=== PATIENT | male | born 1945 | race Caucasian/White ===

== ENCOUNTER 2017-10-05 21:15 | Emergency (ER) | payer MEDICARE ==
[~2017-10-05] VITALS: Ht 185.4 cm; Wt 92.0 kg
[2017-10-05 21:24] VITALS: BP 157/72; PULSE 93; RESP 18; TEMP 102.6; O2SAT 93
[2017-10-05] MEDS ORDERED: SODIUM CHLOR 0.9% 1000 ML INJ 1,000 ML IV ONE ×2 (21:40)
[2017-10-05] MEDS ORDERED: SODIUM CHLOR 0.9% 1000 ML INJ 100 ML IV ONE (21:40)
[2017-10-05] MEDS ORDERED: ACETAMINOPHEN 325 MG TAB PO ONE (21:45)
--- NOTE | 2017-10-05 22:07 | RADRPT ---
EXAM DATE/TIME: 10/05/2017 21:41 [facility] COMPARISON: No previous studies available for comparison. INDICATIONS : Fever. Flu like symptoms. MEDICAL HISTORY : Hypertension. SURGICAL HISTORY : None. ENCOUNTER: Initial ACUITY: 1 week PAIN SCORE: 0/10 LOCATION: Bilateral chest FINDINGS: A single view of the chest demonstrates the lungs to be symmetrically aerated without evidence of mas s, infiltrate or effusion. The cardiomediastinal contours are unremarkable. Osseous structures are intact. CONCLUSION: No acute cardiopulmonary disease demonstrated. Rashad Gonzalez MD on October 05, 2017 at 22:05 Board Certified Radiologist. This report was verified electronically.
[2017-10-05 22:10] VITALS: RESP 18; O2SAT 95
[2017-10-05 22:12] LABS: BASOPHIL # 0.1 TH/MM3 (0-0.2); BASOPHIL % 0.5 % (0.0-2.0); EOSINOPHIL % 0.2 % (0.0-4.0); HEMATOCRIT 40.7 % (39.0-51.0); HEMOGLOBIN 13.7 GM/DL (13.0-17.0); LYMPH % 3.1 % (9.0-44.0); LYMPHOCYTE # 0.4 TH/MM3 (1.0-4.8); MEAN CELL VOLUME 88.3 FL (80.0-100.0); MEAN CORPUSCULAR HEMOGLOBIN 29.8 PG (27.0-34.0); MEAN CORPUSCULAR HGB CONC 33.7 % (32.0-36.0); MEAN PLATELET VOLUME 9.2 FL (7.0-11.0); MONO % 4.6 % (0.0-8.0); MONOCYTE # 0.6 TH/MM3 (0-0.9); NEUT % 91.6 % (16.0-70.0); PLATELET COUNT 122 TH/MM3 (150-450); RED CELL DISTRIBUTION WIDTH 12.3 % (11.6-17.2); WHITE BLOOD COUNT 12.1 TH/MM3 (4.0-11.0)
--- NOTE | 2017-10-05 22:19 | PD ---
HPI Chief Complaint: Cold / Flu Symptoms Time Seen by Provider: 21:39 Travel History International Travel<30 days: No Contact w/Intl Traveler<30days: No Traveled to known affect area: No History of Present Illness HPI 72-year-old male complains of flulike symptoms for the past 2 days. Symptoms include a mild generalized headache, low-grade fever, cough, rhinorrhea, body aches and pains. He denies shortness of breath. Onset gradual. Timing constant. Past medical history includes hypertension and a prediabetic state. Patient otherwise reports to be in excellent physical health. [facility] Past Medical History Hypertension: Yes Tetanus Vaccination: Unknown Influenza Vaccination: No Social History Alcohol Use: Yes ([facility]) Tobacco Use: No Substance Use: No Allergies-Medications (Allergen,Severity, Reaction): Coded Allergies: No Known Allergies (Unverified , 10/05/17) Review of Systems Except as stated in HPI: all other systems reviewed are Neg General / Constitutional: Positive: Fever Physical Exam Narrative GENERAL: 72-year-old male well-nourished well-developed no acute distress Vital Signs Date Time Temp Pulse Resp B/P (MAP) Pulse Ox O2 Delivery O2 Flow Rate FiO2 10/05/17 21:42 18 98 Room Air 10/05/17 21:24 102.6 93 18 157/72 (100) 93 SKIN: Warm and dry. HEAD: Atraumatic. Normocephalic. EYES: Pupils equal and round. No scleral icterus. No injection or drainage. ENT: No nasal bleeding or discharge. Mucous membranes pink and moist. NECK: Trachea midline. No JVD. CARDIOVASCULAR: Tachycardic. Regular rhythm. RESPIRATORY: No accessory muscle use. Clear to auscultation. Breath sounds equal bilaterally. GASTROINTESTINAL: Abdomen soft, non-tender, nondistended. Hepatic and splenic margins not palpable. MUSCULOSKELETAL: Extremities without clubbing, cyanosis, or edema. No obvious deformities. NEUROLOGICAL: Awake and alert. No obvious cranial nerve deficits. Motor grossly within normal limits. Five out of 5 muscle strength in the arms and legs. Normal speech. PSYCHIATRIC: Appropriate mood and affect; insight and judgment normal. Data Data Last Documented VS Vital Signs Date Time Temp Pulse Resp B/P (MAP) Pulse Ox O2 Delivery O2 Flow Rate FiO2 10/05/17 21:42 18 98 Room Air 10/05/17 21:24 102.6 93 157/72 (100) Orders Orders Sepsis Workup Initiated (10/05/17 ) Complete Blood Count With Diff (10/05/17 21:40) Comprehensive Metabolic Panel (10/05/17 21:40) Lactic Acid Sepsis Protocol (10/05/17 21:40) Urinalysis - C+S If Indicated (10/05/17 21:40) Influenzae A/B Antigen (10/05/17 21:40) Blood Culture (10/05/17 21:40) Chest, Single Ap (10/05/17 21:40) Blood Glucose (10/05/17 21:40) Ecg Monitoring (10/05/17 21:40) Iv Access Insert/Monitor (10/05/17 21:40) Oximetry (10/05/17 21:40) Oxygen Administration (10/05/17 21:40) Acetaminophen (Tylenol) (10/05/17 21:45) Sodium Chlor 0.9% 1000 Ml Inj (Ns 1000 M (10/05/17 21:40) Sodium Chlor 0.9% 1000 Ml Inj (Ns 1000 M (10/05/17 21:40) Sodium Chlor 0.9% 1000 Ml Inj (Ns 1000 M (10/05/17 21:40) Labs Laboratory Tests Test 10/05/17 22:06 White Blood Count 12.1 TH/MM3 Red Blood Count 4.60 MIL/MM3 Hemoglobin 13.7 GM/DL Hematocrit 40.7 % Mean Corpuscular Volume 88.3 FL Mean Corpuscular Hemoglobin 29.8 PG Mean Corpuscular Hemoglobin Concent 33.7 % Red Cell Distribution Width 12.3 % Platelet Count 122 TH/MM3 Mean Platelet Volume 9.2 FL Neutrophils (%) (Auto) 91.6 % Lymphocytes (%) (Auto) 3.1 % Monocytes (%) (Auto) 4.6 % Eosinophils (%) (Auto) 0.2 % Basophils (%) (Auto) 0.5 % Neutrophils # (Auto) 11.0 TH/MM3 Lymphocytes # (Auto) 0.4 TH/MM3 Monocytes # (Auto) 0.6 TH/MM3 Eosinophils # (Auto) 0.0 TH/MM3 Basophils # (Auto) 0.1 TH/MM3 CBC Comment DIFF FINAL Differential Comment MDM Medical Decision Making Medical Screen Exam Complete: Yes Emergency Medical Condition: Yes Medical Record Reviewed: Yes Differential Diagnosis Influenza, pneumonia, pharyngitis, anemia, renal failure Narrative Course Overall the patient is very well in appearance. Influenza assay here is negative however the symptoms are more or less pathognomonic for this season. The patient will be diagnosed with influenza and treated for it based on clinical impression. There is been about a 50% false negative report for the flu test this season such that is not surprising have a negative flu test. Patient received IV fluids and Tylenol. First dose Tamiflu given here. Strict return precautions discussed. Patient is quite agreeable with plan and appears very responsible and reliable. Diagnosis Primary Impression: Influenza Referrals: Primary Care Physician call for appointment Med/Other Pt SpecificInfo: Prescription(s) given Scripts Oseltamivir (Tamiflu) 75 Mg Cap 75 MG PO BID for Mgmt Viral Infection for 5 Days, #10 CAP 0 Refills Prov: Chi Garcia MD 10/05/17 Disposition: 01 DISCHARGE HOME Condition: Stable Chi Garcia MD Oct 05, 2017 22:19
[2017-10-05 22:25] LABS: CHLORIDE 104 MEQ/L (98-107); SODIUM (NA) 137 MEQ/L (136-145)
[2017-10-05] MEDS ORDERED: OSEL75 PO (22:27)
[2017-10-05 22:28] LABS: ALBUMIN 3.7 GM/DL (3.4-5.0); BICARBONATE 27.7 MEQ/L (21.0-32.0); GLUCOSE,RANDOM 153 MG/DL (74-106)
[2017-10-05 22:29] VITALS: BP 141/69; PULSE 81; RESP 18; O2SAT 95
[2017-10-05 22:29] LABS: BLOOD UREA NITROGEN 16 MG/DL (7-18)
[2017-10-05 22:29] LABS: BILIRUBIN, URINE NEG (NEG); BLOOD, URINE NEG (NEG); GLUCOSE,URINE NEG (NEG); KETONE, URINE TRACE mg/dL (NEG); NITRITE,URINE NEG (NEG); URINE COLOR YELLOW (YELLW/STRAW); URINE LEUKOCYTE ESTERASE NEG (NEG)
[2017-10-05 22:31] LABS: ALT (GPT) 27 U/L (12-78); AST (GOT) 14 U/L (15-37); CREATININE 0.75 MG/DL (0.60-1.30); GLOMERULAR FILTRATION RATE 102 ML/MIN (>89)
[2017-10-05 22:33] LABS: TOTAL BILIRUBIN ADULT 0.7 MG/DL (0.2-1.0); TOTAL PROTEIN 7.4 GM/DL (6.4-8.2)
[2017-10-05 22:33] LABS: RBC, URINE 0-3 /hpf (0-3); WBC, URINE 0-2 /hpf (0-5)
[2017-10-05 22:34] LABS: SQUAMOUS EPITHELIAL CELL URINE 0-5 /hpf (0-5)
[2017-10-05 22:34] LABS: ALKALINE PHOSPHATASE 115 U/L (45-117)
[2017-10-05 23:01] VITALS: TEMP 99.2
== END 2017-10-05 23:05 | disposition home or self-care (01) ==
LOC: PHED 21:15
DX: J11.1 Influenza due to unidentified influenza virus with other respiratory manifestations (principal)
CPT/HCPCS: 71045; 80053; 81001; 83605; 85025; 87040; 87804; 96360; 99284; J7030

== ENCOUNTER 2017-10-14 07:56 | Emergency (ER) | payer MEDICARE, OTHER ==
[~2017-10-14] VITALS: Ht 185.4 cm; Wt 91.6 kg
[~2017-10-14 07:56] MED LIST: OSEL75 PO
[2017-10-14 07:59] VITALS: BP 150/70; PULSE 84; RESP 18; TEMP 98.5; O2SAT 98
[2017-10-14] MEDS ORDERED: LOSA50TA PO (08:07)
[2017-10-14] MEDS ORDERED: GUAISYP4 PO (08:12)
[2017-10-14] MEDS ORDERED: ZITHTAB PO (08:12)
--- NOTE | 2017-10-14 08:13 | PD ---
HPI Chief Complaint: Cold / Flu Symptoms Time Seen by Provider: 08:07 Travel History International Travel<30 days: No Contact w/Intl Traveler<30days: No Traveled to known affect area: No History of Present Illness HPI Patient gives a history of ongoing coughing since before October 05. Since then the patient was evaluated here in the emergency department had an x-ray, flu test, blood work with CBC done. Was prescribed Tamiflu and discharged home. Patient returns today stating that he still has the coughing, has coughing fits occasionally and that he is sputum has now turned yellowish. No alleviating or aggravating factors. Patient denies any associated factors such as fever, rash , chest pain, back pain, flank pain, abdominal pain, nausea vomiting or diarrhea. PCP is No known drug allergy Past medical history significant for hypertension PFSH Past Medical History Cardiovascular Problems: Yes (HTN) Diminished Hearing: No Hypertension: Yes Tetanus Vaccination: Unknown Social History Alcohol Use: Yes (OCC) Tobacco Use: No Substance Use: No Allergies-Medications (Allergen,Severity, Reaction): Coded Allergies: No Known Allergies (Unverified , 10/14/17) Reported Meds & Prescriptions Reported Meds & Active Scripts Active Guaifenesin AC Liq (Guaifenesin-Codeine Liq) 100-10 Mg/5 Ml Syrp 10 Ml PO Q6H PRN Zithromax Z-Hector (Azithromycin) 250 Mg Dspk 250 Mg PO DIRECTED 500 MG (2 tabs) day 1, then 1 tab days 2-5. Reported Losartan (Losartan Potassium) 50 Mg Tab 50 Mg PO DAILY Review of Systems General / Constitutional: No: Fever Eyes: No: Visual changes HENT: No: Headaches Cardiovascular: No: Chest Pain or Discomfort Respiratory: Positive: Cough Gastrointestinal: No: Abdominal Pain Genitourinary: No: Dysuria Musculoskeletal: No: Pain Skin: No Rash Neurologic: No: Weakness Psychiatric: No: Depression Endocrine: No: Polydipsia Hematologic/Lymphatic: No: Easy Bruising Physical Exam Narrative GENERAL: SKIN: Warm and dry. HEAD: Atraumatic. Normocephalic. EYES: Pupils equal and round. No scleral icterus. No injection or drainage. ENT: No nasal bleeding or discharge. Mucous membranes pink and moist. NECK: Trachea midline. No JVD. CARDIOVASCULAR: Regular rate and rhythm. RESPIRATORY: No accessory muscle use. Clear to auscultation. Breath sounds equal bilaterally. GASTROINTESTINAL: Abdomen soft, non-tender, nondistended. Hepatic and splenic margins not palpable. MUSCULOSKELETAL: Extremities without clubbing, cyanosis, or edema. No obvious deformities. NEUROLOGICAL: Awake and alert. No obvious cranial nerve deficits. Motor grossly within normal limits. Five out of 5 muscle strength in the arms and legs. Normal speech. PSYCHIATRIC: Appropriate mood and affect; insight and judgment normal. Data Data Last Documented VS Vital Signs Date Time Temp Pulse Resp B/P (MAP) Pulse Ox O2 Delivery O2 Flow Rate FiO2 10/14/17 07:59 98.5 84 18 150/70 (96) 98 Orders Orders Chest, Pa & Lat (10/14/17 08:31) Ciprofloxacin (Cipro) (10/14/17 09:30) Hydrocodone-Homatropine Liq (Hycodan Liq (10/14/17 09:30) [facility] Medical Decision Making Medical Screen Exam Complete: Yes Emergency Medical Condition: Yes Medical Record Reviewed: Yes Interpretation(s) Excellent Pleth wave noted, on room air, pulse ox readings between 96 and 100 which is within normal limits and not showing any signs of hypoxemia Differential Diagnosis Pneumonia versus pulmonary edema versus bronchiectasis versus bronchitis Narrative Course On October 05 the patient had negative flu test, had CBC which did not show any leukocytosis but did show some left shift neutrophilia of 91%, at that point the patient did not have any evidence of hypoxemia on pulse ox. Today the patient comes in with continued symptoms, states that his fevers have improved, but his cough has continued. Vital signs are all stable at bedside. Without any evidence of hypoxemia. Diagnosis Primary Impression: Community acquired bacterial pneumonia Patient Instructions: Community Acquired Pneumonia (DC), General Instructions Scripts Ciprofloxacin (Cipro) 500 Mg Tab 500 MG PO BID for Infection for 7 Days, #14 TAB 0 Refills Prov: Kurt Wiggins MD 10/14/17 Guaifenesin-Codeine Liq (Guaifenesin AC Liq) 100-10 Mg/5 Ml Syrp 10 ML PO Q6H Y for COUGH, #120 BOTTLE 0 Refills Prov: Kurt Wiggins MD 10/14/17 Azithromycin (Zithromax Z-Hector) 250 Mg Dspk 250 MG PO DIRECTED for Infection, #1 DSPK 0 Refills 500 MG (2 tabs) day 1, then 1 tab days 2-5. Prov: Kurt Wiggins MD 10/14/17 Disposition: 01 DISCHARGE HOME Condition: Stable Kurt Wiggins MD October 14, 2017 08:13
--- NOTE | 2017-10-14 09:10 | RADRPT ---
EXAM DATE/TIME: 10/14/2017 08:58 [facility] COMPARISON: CHEST SINGLE AP, October 05, 2017, 21:41. INDICATIONS : Cough, congestion. MEDICAL HISTORY : Hypertension. SURGICAL HISTORY : None. ENCOUNTER: Initial ACUITY: 2 weeks PAIN SCORE: 0/10 LOCATION: Bilateral chest FINDINGS: No development of segmental consolidation in the posterior medial left lower lung with loss of deline ation of the posterior hemidiaphragm. Consolidation is better seen on the lateral view than on the f rontal view. The right lung is clear. Heart is normal in size. CONCLUSION: Left lower lung consolidation. Ray Quezada MD on October 14, 2017 at 9:07 Board Certified Radiologist. This report was verified electronically.
[2017-10-14] MEDS ORDERED: CIPR-9 PO (09:25)
[2017-10-14] MEDS ORDERED: HYDROcodone 5 MG/HOMATROPINE 1.5 MG SYRUP 5 ML CUP PO ONE (10:00)
[2017-10-14] MEDS ORDERED: CIPROFLOXACIN 500 MG TAB PO ONE (10:00)
== END 2017-10-14 10:38 | disposition home or self-care (01) ==
LOC: PHED 07:56
DX: J15.9 Unspecified bacterial pneumonia (principal); I10 Essential (primary) hypertension; Z79.899 Other long term (current) drug therapy
CPT/HCPCS: 71046; 99283